=== PATIENT | female | born 1980 | race Two or more races ===

== ENCOUNTER → 2025-05-01 | Outpatient (CLI) | payer MEDICAID, SELFPAY ==
--- NOTE | 2025-05-01 08:45 | XR_ITS ---
Examination: Breast ultrasound complete, bilateral Date and time of exam: May 01, 2025 0910 hours INDICATIONS: Abnormality on outside mammogram done 2 months ago Technique: Real-time grayscale ultrasonographic imaging bilateral breasts, including all 4 quadrants as well as nipple retroareolar and axillary regions. Findings: Sonographic images right breast 2:00 cyst 6 x 6 mm 9:00 nodule circumscribed 8 x 9 mm 11:00 cyst 4 x 4 millimeter Sonographic images left breast 12:00 cyst 14 x 14 mm 12:00 cyst 9 x 10 mm No solid nodules IMPRESSION: BI-RADS Category 3: Probably benign findings Recommend 1 additional 6 month right breast sonogram follow-up to document stability of 9:00 nodule right breast described above
== END | disposition home or self-care (01) ==
PROVIDERS: Referring Provider Nurse Practitioner Family; Visit Provider Nurse Practitioner Family
DX: N63.15 Unspecified lump in the right breast, overlapping quadrants (principal)
CPT/HCPCS: 76641